=== PATIENT | female | born 1970 | race Two or more races ===

== ENCOUNTER 2016-12-17 18:17 | Emergency (ER) | payer SELFPAY ==
--- NOTE | ~2016-12-17 | ER ---
PATIENT'S NAME: BUCKY [facility] AGE: 46 Y [address] ROOM: [place] [id number] LOCATION: [facility] ADMIT DATE: 12/17/2016 ER/Outpatient Report DISCHARGE DATE: 12/17/2016 FAMILY PHYSICIAN: PHYSICIAN, SHANNA ATTENDING PHYSICIAN: Rodolfo Perez CHIEF COMPLAINT: Headache. HISTORY OF PRESENT ILLNESS: The patient states she has had headache off and on her whole life, but for the last 6 months they have been getting worse. They are most prominent in the morning and typically get better throughout the day. However, for the last 2 days the patient has not been able to shake her current headache. She tried no [id number]-[id number] medications other than sleep. She states she has never had anything like this wherein it would not relieve after a day with some rest. The symptoms are always the same in the front and the back of the head, and there is no clear aura associated with it. PAST MEDICAL HISTORY: Documented on the record and reviewed by me. SOCIAL HISTORY: Documented on the record and reviewed by me. MEDICATIONS: Documented on the record and reviewed by me. ALLERGIES: DOCUMENTED ON THE RECORD AND REVIEWED BY ME. REVIEW OF SYSTEMS: All systems reviewed and negative except as noted in the HPI. PHYSICAL EXAMINATION: VITAL SIGNS: Blood pressure is 130/87, pulse 91, respiratory rate is 18, temperature 98.4, and SpO2 is 98% on room air. Pain is rated at 9/10. GENERAL: Age-appropriate female, in mild discomfort. No outward signs of respiratory distress, resting recumbent in the exam table. NEUROLOGIC: Awake and alert. GCS 15. No focal deficits. No asymmetry on exam. No meningismus. HEENT: Normocephalic, atraumatic. Eyes are PERRL. Oropharynx is clear. NECK: Supple. Trachea is midline. CHEST: Heart is regular rate and rhythm with no murmurs. LUNGS: Clear to auscultation bilateral. No rhonchi, wheezes, or rales. PATIENT'S NAME: BUCKY [facility] AGE: 46 Y [address] ROOM: [place] [address] LOCATION: [facility] ADMIT DATE: 12/17/2016 ER/Outpatient Report DISCHARGE DATE: 12/17/2016 FAMILY PHYSICIAN: PHYSICIAN, NO ATTENDING PHYSICIAN: Rodolfo Perez ABDOMEN: Soft, nontender, and nondistended. No rebound or guarding. BACK: Back is normal inspection palpation. EXTREMITIES: Warm, well perfused. No deformities. No edema. SKIN: Clean, dry and intact. No appreciated rashes. LABORATORY DATA AND X-RAYS: Head CT unremarkable for mass lesions. IMPRESSION: Cephalgia, unclear etiology. EMERGENCY DEPARTMENT COURSE: The patient was seen and evaluated. Not consistent with subarachnoid hemorrhage. With her worsening a.m. headaches head CT was obtained to evaluate for any significant mass lesion was negative. No neurologic signs. Not consistent with meningitis. The patient was treated with fluids, Compazine, Benadryl and Decadron, in addition to some Toradol. She was feeling much better. Hopefully, the steroids will help to improve her symptoms over the next few days and help her turn the corner. She needs to follow up with her primary care provider as needed. MD AMBERLY VANN/christiana /[id number] d: 12/18/1658 t: 12/21/16 0803, OUTPATIENT REPORT
[~2016-12-17 18:17] MED LIST: ESTROVEN 155 M155 MG PO; IBUPROFEN400 MG PO; PROZAC20 MG PO; TRAZODONE HCL50 MG PO; TYLENOL PM EX-1 EACH PO
== END 2016-12-17 21:05 | disposition disaster alternative care site (69) ==
LOC: GMED 18:17
DX: R51 Headache (principal); Z79.899 Other long term (current) drug therapy; Z90.710 Acquired absence of both cervix and uterus; F32.9 Major depressive disorder, single episode, unspecified; Z90.49 Acquired absence of other specified parts of digestive tract; Z98.890 Other specified postprocedural states; Z87.891 Personal history of nicotine dependence
CPT/HCPCS: J0780; J1200; J1885; J7030